=== PATIENT | female | born 1995 | race African-American/Black ===

== ENCOUNTER 2019-07-06 14:34 | Emergency (ER) | payer MEDICAID ==
[~2019-07-06] VITALS: Ht 165.1 cm; Wt 63.0 kg
[2019-07-06 14:42] VITALS: BP 127/70
== END 2019-07-06 21:30 | disposition left against medical advice (07) ==
LOC: ER 14:34
DX: Z53.21 Procedure and treatment not carried out due to patient leaving prior to being seen by health care provider (principal)

== ENCOUNTER 2020-08-07 18:17 | Emergency (ER) | payer MEDICAID ==
[~2020-08-07] VITALS: Ht 167.6 cm; Wt 52.0 kg
[2020-08-07] MEDS ORDERED: KETOROLAC 15MG/ML VIAL IV ONE (19:00)
[2020-08-07] MEDS ORDERED: SODIUM CHLORIDE 0.9% 1,000 ML IV ONE (19:00)
[2020-08-07 19:18] LABS: BASOPHILS % 0.9 % (0.0-2.0); EOSINOPHILS % 0.7 % (0.0-5.0); HEMATOCRIT. 39.2 % (36.0-48.0); HEMOGLOBIN. 13.2 g/dL (12.0-16.0); LYMPHOCYTES % 33.4 % (20.0-50.0); MEAN CORPUSCULAR HEMOGLOBIN 31.7 pg (28.0-32.0); MEAN CORPUSCULAR VOLUME 93.9 fL (81.0-99.0); MEAN PLATELET VOLUME 8.5 fl (7.4-10.4); MONOCYTES % 8.4 % (2.0-8.0); NEUTROPHILS % 56.6 % (40.0-76.0); PLATELET 277 x1000/uL (130-400); RED BLOOD CELL COUNT 4.17 mill/uL (4.2-5.4); RED CELL DISTRIBUTION WIDTH 14.6 % (11.6-14.6)
[2020-08-07 19:24] LABS: CHLORIDE 108 mEq/L (98-107)
[2020-08-07] MEDS ORDERED: LORAZEPAM 2MG/ML CPJ IV NR (20:15)
[2020-08-07] MEDS ORDERED: LORA-249 MT ×2 (22:40→22:43)
[2020-08-07 23:10] VITALS: BP 113/73
== END 2020-08-07 23:53 | disposition home or self-care (01) ==
LOC: ER 18:17
DX: R07.89 Other chest pain (principal); Z86.16 Personal history of COVID-19
CPT/HCPCS: 36415; 71045; 80053; 84484; 85025; 85379; 93005; 96361; 96374; 96375; 99285; J1885; J2060; J7030; Z7610